=== PATIENT | male | born 1955 | race Caucasian/White ===

== ENCOUNTER 2020-02-21 12:38 | Inpatient (IN) ==
[2020-02-21] MEDS ORDERED: Isovue-370 500 ML BOTTLE IVP ONE (12:44)
[2020-02-21 13:11] LABS: Basophils # 0.1 K/mcL (0.0-0.2); Eosinophils # 0.2 K/mcL (0.0-0.6); Eosinophils % 2.2 %; Hematocrit 25.8 % (37.5-50.1); Hemoglobin 8.1 g/dL (12.9-16.9); Immature Granulocytes % 0.6 % (0-4); Lymphocytes # 0.5 K/mcL (0.6-4.6); Lymphocytes % 7.2 %; Mean Corpuscular HGB Conc 31.4 g/dL (31.6-35.5); Mean Corpuscular Hemoglobin 29.8 pg (28.0-33.3); Mean Corpuscular Volume 94.9 fL (83.0-100.0); Mean Platelet Volume 8.9 fL (9.4-12.4); Monocytes # 0.6 K/mcL (0.0-1.3); Monocytes % 7.8 %; Neutrophils # 5.8 K/mcL (1.6-8.9); Platelet Count 307 K/mcL (140-400); Red Blood Count 2.72 M/mcL (4.19-5.50); Red Cell Distribution Width 14.6 % (11.5-14.5); Segmented Neutrophils % 81.2 %; White Blood Count 7.2 K/mcL (4.3-11.1)
[2020-02-21 13:36] LABS: Calcium 8.5 mg/dL (8.6-10.3); Troponin I 0.04 ng/mL (< 0.04)
[2020-02-21 16:51] LABS: Albumin 2.6 g/dL (3.5-5.7)
[2020-02-21] MEDS ORDERED: Naloxone 0.4 MG/ML INJ IVP PRN (17:12)
[2020-02-21 18:35] LABS: Adenovirus Not Detected (Not Detect); Bordetella Pertussis Not Detected (Not Detect); Chlamydophila pneumoniae Not Detected (Not Detect); Coronavirus 229E Not Detected (Not Detect); Coronavirus HKU1 Not Detected (Not Detect); Coronavirus NL63 Not Detected (Not Detect); Coronavirus OC43 Not Detected (Not Detect); Human Metapneumovirus Not Detected (Not Detect); Human Rhinovirus/Enterovirus Not Detected (Not Detect); Influenza A Subtype 2009 H1 Not Detected (Not Detect); Influenza B Not Detected (Not Detect); Mycoplasma pneumoniae Not Detected (Not Detect); Parainfluenza Virus 1 Not Detected (Not Detect); Parainfluenza Virus 2 Not Detected (Not Detect); Parainfluenza Virus 3 Not Detected (Not Detect); Parainfluenza Virus 4 Not Detected (Not Detect); Respiratory Syncytial Virus Not Detected (Not Detect); SARS-CoV-2 Not Detected (Not Detect)
[2020-02-21 19:10] LABS: Total Protein,Pleural Fluid 2.6 g/dL
[2020-02-21 19:11] LABS: RBC,Pleural Fluid 430000 RBC/mcL
[2020-02-21 19:34] LABS: Appearance of Body Fluid Cloudy (Clear); Volume of Body Fluid 900 mL
[2020-02-21 19:35] LABS: Appearance of Pleural Fl Bloody (Clear)
[2020-02-21 21:02] LABS: Basophils,Pleural Fluid 0 %
[2020-02-22] MEDS ORDERED: *HR* HYDROcodone/Acet 5/325 mg TABLET PO PRN (08:26)
[2020-02-22 08:34] LABS: INR 1.1; Prothrombin Time 13.1 Seconds (9.4-12.1)
[2020-02-22 08:42] LABS: Albumin 2.4 g/dL (3.5-5.7); Albumin/Globulin Ratio 0.9 (1.1-2.2); Bilirubin,Direct 0.2 mg/dL (0.0-0.2); Bilirubin,Indirect 0.3 mg/dL (0.0-1.0); Bilirubin,Total 0.5 mg/dL (0.3-1.0); Globulin 2.6 g/dL (2.4-3.5)
[2020-02-22 08:43] LABS: Calcium 8.6 mg/dL (8.6-10.3); Magnesium 1.8 mg/dL (1.6-2.6); Phosphorous 4.3 mg/dL (2.7-4.5); Potassium 4.4 mEq/L (3.5-5.1)
[2020-02-22 12:20] LABS: Basophils # 0.1 K/mcL (0.0-0.2); Eosinophils # 0.2 K/mcL (0.0-0.6); Eosinophils % 2.1 %; Hematocrit 26.2 % (37.5-50.1); Hemoglobin 8.3 g/dL (12.9-16.9); Immature Granulocytes % 0.6 % (0-4); Lymphocytes # 0.6 K/mcL (0.6-4.6); Lymphocytes % 7.7 %; Mean Corpuscular HGB Conc 31.7 g/dL (31.6-35.5); Mean Corpuscular Hemoglobin 30.4 pg (28.0-33.3); Mean Platelet Volume 9.1 fL (9.4-12.4); Monocytes # 0.4 K/mcL (0.0-1.3); Monocytes % 5.6 %; Neutrophils # 5.9 K/mcL (1.6-8.9); Platelet Count 325 K/mcL (140-400); Red Blood Count 2.73 M/mcL (4.19-5.50); Red Cell Distribution Width 14.7 % (11.5-14.5); White Blood Count 7.2 K/mcL (4.3-11.1)
[2020-02-22] MEDS ORDERED: 0.9 % Sodium Chloride 250 ML IVC PRN (13:01)
[2020-02-22] MEDS ORDERED: 0.9 % Sodium Chloride 1,000 ML PRIME SCH (13:15)
[2020-02-22 14:46] LABS: Hepatitis B Surface Antibody < 3.10 mIU/mL
[2020-02-22 14:57] LABS: Hepatitis B Surface Antigen Nonreactive (Nonreactive)
[2020-02-23 01:06] LABS: Basophils # 0.1 K/mcL (0.0-0.2); Basophils % 0.8 %; Eosinophils # 0.2 K/mcL (0.0-0.6); Eosinophils % 2.7 %; Hematocrit 24.4 % (37.5-50.1); Hemoglobin 7.9 g/dL (12.9-16.9); Immature Granulocytes % 0.7 % (0-4); Lymphocytes # 0.6 K/mcL (0.6-4.6); Lymphocytes % 8.1 %; Mean Corpuscular HGB Conc 32.4 g/dL (31.6-35.5); Mean Corpuscular Hemoglobin 30.5 pg (28.0-33.3); Mean Corpuscular Volume 94.2 fL (83.0-100.0); Mean Platelet Volume 9.1 fL (9.4-12.4); Monocytes # 0.5 K/mcL (0.0-1.3); Monocytes % 6.6 %; Neutrophils # 5.8 K/mcL (1.6-8.9); Platelet Count 318 K/mcL (140-400); Red Blood Count 2.59 M/mcL (4.19-5.50); Red Cell Distribution Width 14.7 % (11.5-14.5); Segmented Neutrophils % 81.1 %; White Blood Count 7.2 K/mcL (4.3-11.1)
[2020-02-23 01:22] LABS: Phosphorous 2.8 mg/dL (2.7-4.5)
[2020-02-23 01:23] LABS: Calcium 8.1 mg/dL (8.6-10.3); Potassium 4.3 mEq/L (3.5-5.1)
[2020-02-23] MEDS: carvediloL 6.25 MG TABLET PO SCH ×2 (10:49→16:33)
[2020-02-23] MEDS ORDERED: Vancomycin 1 EACH in 0.9 % Sodium Chloride 250 ML IVPB PRN (10:58)
[2020-02-23] MEDS ORDERED: Vancomycin 1,250 MG/262.5 ML IV.SOLN IVPB ONE (11:35)
[2020-02-23] MEDS ORDERED: Piperacillin/Tazobactam 3.375 GM in 0.9 % Sodium Chloride Mini Bag 100 ML IVPB SCH (12:00)
[2020-02-23 14:48] LABS: RBC,Peritoneal Fluid 56000 RBC/mcL
[2020-02-23 15:02] LABS: Total Protein,Peritoneal Fluid 2.9 g/dL
[2020-02-23 15:19] LABS: Appearance of Peritoneal Fl BLOODY (Clear); Basophils,Peritoneal Fluid 0 %
[2020-02-23] MEDS ORDERED: Albumin 25% 12.5gm/50mL 12.5 GM/50 ML IV.SOLN IVPB ONE (15:30)
[2020-02-23 20:02] VITALS: BP 157/81
[2020-02-23] MEDS ORDERED: Isovue-370 500 ML BOTTLE IVP ONE (20:17)
[2020-02-23 20:20] LABS: Basophils # 0.1 K/mcL (0.0-0.2); Eosinophils # 0.1 K/mcL (0.0-0.6); Eosinophils % 1.6 %; Hematocrit 24.5 % (37.5-50.1); Hemoglobin 7.6 g/dL (12.9-16.9); Immature Granulocytes % 0.7 % (0-4); Lymphocytes # 0.6 K/mcL (0.6-4.6); Lymphocytes % 8.4 %; Mean Corpuscular Hemoglobin 29.5 pg (28.0-33.3); Mean Platelet Volume 8.9 fL (9.4-12.4); Monocytes # 0.6 K/mcL (0.0-1.3); Monocytes % 7.8 %; Neutrophils # 5.9 K/mcL (1.6-8.9); Platelet Count 307 K/mcL (140-400); Red Blood Count 2.58 M/mcL (4.19-5.50); Segmented Neutrophils % 80.5 %; White Blood Count 7.4 K/mcL (4.3-11.1)
[2020-02-24 11:36] LABS: Fluid Source for Albumin PERITONEAL FL
== END 2020-02-23 20:50 | disposition short-term general hospital (02) | DRG 143 ==
LOC: 2ANU 12:38 → EMEROOARM 12:38 → SUATTDRO 16:43 → 2ANU 20:13
PROVIDERS: ADMIT Internal Medicine; ATTEND Student in an Organized Health Care Education/Training Program

== ENCOUNTER 2020-09-05 11:57 | Inpatient (IN) ==
[2020-09-05] MEDS ORDERED: Albumin 25% 25gram/100mL 25 GM/100 ML IV.SOLN IVPB ONE (12:16)
[2020-09-05] MEDS ORDERED: 0.9 % Sodium Chloride 1,000 ML IVC ONE (12:56)
[2020-09-05 13:01] LABS: Eosinophils % 0.6 %; Hematocrit 27.8 % (37.5-50.1); Hemoglobin 8.7 g/dL (12.9-16.9); Lymphocytes # 0.1 K/mcL (0.6-4.6); Lymphocytes % 3.5 %; Mean Corpuscular HGB Conc 31.3 g/dL (31.6-35.5); Mean Corpuscular Hemoglobin 29.3 pg (28.0-33.3); Mean Corpuscular Volume 93.6 fL (83.0-100.0); Mean Platelet Volume 9.8 fL (9.4-12.4); Monocytes # 0.1 K/mcL (0.0-1.3); Monocytes % 2.9 %; Neutrophils # 2.9 K/mcL (1.6-8.9); Platelet Count 308 K/mcL (140-400); Red Blood Count 2.97 M/mcL (4.19-5.50); Red Cell Distribution Width 15.8 % (11.5-14.5); White Blood Count 3.1 K/mcL (4.3-11.1)
[2020-09-05 13:09] LABS: Albumin 2.3 g/dL (3.5-5.7); Albumin/Globulin Ratio 0.8 (1.1-2.2); Bilirubin,Direct 0.7 mg/dL (0.0-0.2); Bilirubin,Indirect 0.3 mg/dL (0.0-1.0); Calcium 9.4 mg/dL (8.6-10.3); Globulin 2.9 g/dL (2.4-3.5); Potassium 5.2 mEq/L (3.5-5.1); Total Protein 5.2 g/dL (6.4-8.9); Troponin I 0.05 ng/mL (< 0.04)
[2020-09-05 13:41] LABS: Platelet Estimate Normal (Normal)
[2020-09-05 13:42] LABS: Anisocytosis 1+ (Not Present); Large Platelets Present (Not Present)
[2020-09-05 13:46] LABS: INR 1.1; Prothrombin Time 13.1 Seconds (9.4-12.1)
[2020-09-05 13:49] LABS: Activated Partial Thrombo Time 28.9 Seconds (26.0-36.0)
[2020-09-05] MEDS ORDERED: 0.9 % Sodium Chloride 500 ML IV ONE (14:18)
[2020-09-05] MEDS ORDERED: 0.9 % Sodium Chloride 250 ML IVC ONE (14:22)
[2020-09-05] MEDS ORDERED: Ondansetron 4 MG/2 ML VIAL IVP PRN (15:07)
[2020-09-05] MEDS ORDERED: Naloxone 0.4 MG/ML INJ IVP PRN (15:07)
[2020-09-05] MEDS ORDERED: Ipratropium/Albuterol Neb 3 ML IH PRN (15:12)
[2020-09-05] MEDS ORDERED: Morphine Sulfate 2 MG/ML SYRINGE IVP STA (15:41)
[2020-09-05] MEDS ORDERED: Vancomycin 1,500 MG/265 ML IV.SOLN IVPB ONE (16:00)
[2020-09-05] MEDS ORDERED: Piperacillin/Tazobactam 3.375 GM in 0.9 % Sodium Chloride Mini Bag 100 ML IVPB SCH (16:00)
[2020-09-05] MEDS ORDERED: Nitroglycerin 0.4 MG TAB.SUBL SL PRN (16:15)
[2020-09-05] MEDS ORDERED: Perflutren Lipid Microsphere 1.3 ML in 0.9 % Sodium Chloride 8.7 ML IVP PRN (16:25)
[2020-09-05] MEDS ORDERED: Vancomycin 1,250 MG/262.5 ML IV.SOLN IVPB ONE (16:45)
[2020-09-05] MEDS: *HR* Heparin 5,000 UNIT/ML VIAL SQ SCH (16:58)
[2020-09-05] MEDS: Piperacillin/Tazobactam 3.375 GM in 0.9 % Sodium Chloride Mini Bag 100 ML IVPB SCH (16:58)
[2020-09-05] MEDS: *HR* HYDROcodone/Acet 5/325 mg TABLET PO PRN (17:05)
[2020-09-05 19:14] LABS: ABG Base Excess -1 mEq/L (-2 to 3); ABG HCO3 24 mEq/L (21-27); ABG Oxygen Saturation 92 % (95-98); ABG PCO2 38 mmHg (35-45); ABG PH 7.41 pH Units (7.32-7.45); ABG PO2 63 mmHg (85-104); ABG TCO2 25 mEq/L (20-26)
[2020-09-05] MEDS: traZODone 50 MG TABLET PO SCH (20:42)
[2020-09-05] MEDS: Melatonin 3 MG TABLET PO SCH (20:42)
[2020-09-05 20:57] LABS: Adenovirus Not Detected (Not Detect); Bordetella Pertussis Not Detected (Not Detect); Chlamydophila pneumoniae Not Detected (Not Detect); Coronavirus 229E Not Detected (Not Detect); Coronavirus HKU1 Not Detected (Not Detect); Coronavirus NL63 Not Detected (Not Detect); Coronavirus OC43 Not Detected (Not Detect); Human Metapneumovirus Not Detected (Not Detect); Human Rhinovirus/Enterovirus Not Detected (Not Detect); Influenza A Subtype 2009 H1 Not Detected (Not Detect); Influenza B Not Detected (Not Detect); Mycoplasma pneumoniae Not Detected (Not Detect); Parainfluenza Virus 1 Not Detected (Not Detect); Parainfluenza Virus 2 Not Detected (Not Detect); Parainfluenza Virus 3 Not Detected (Not Detect); Parainfluenza Virus 4 Not Detected (Not Detect); Respiratory Syncytial Virus Not Detected (Not Detect); SARS-CoV-2 Not Detected (Not Detect)
[2020-09-06 01:23] LABS: Basophils % 0.3 %; Hematocrit 26.9 % (37.5-50.1); Hemoglobin 8.6 g/dL (12.9-16.9); Immature Granulocytes % 4.5 % (0-4); Lymphocytes # 0.2 K/mcL (0.6-4.6); Lymphocytes % 4.7 %; Mean Corpuscular Hemoglobin 29.2 pg (28.0-33.3); Mean Corpuscular Volume 91.2 fL (83.0-100.0); Mean Platelet Volume 10.3 fL (9.4-12.4); Monocytes # 0.2 K/mcL (0.0-1.3); Monocytes % 4.5 %; Platelet Count 280 K/mcL (140-400); Red Blood Count 2.95 M/mcL (4.19-5.50); Red Cell Distribution Width 15.9 % (11.5-14.5); White Blood Count 3.8 K/mcL (4.3-11.1)
[2020-09-06 01:29] LABS: Neutrophils # 3.2 K/mcL (1.6-8.9)
[2020-09-06 01:50] LABS: Albumin 2.3 g/dL (3.5-5.7); Albumin/Globulin Ratio 0.9 (1.1-2.2); Bilirubin,Total 1.1 mg/dL (0.3-1.0); Calcium 9.3 mg/dL (8.6-10.3); Chol/HDL Ratio 16.8 (0-4.9); Globulin 2.7 g/dL (2.4-3.5); Potassium 5.7 mEq/L (3.5-5.1)
[2020-09-06] MEDS: Piperacillin/Tazobactam 3.375 GM in 0.9 % Sodium Chloride Mini Bag 100 ML IVPB SCH ×2 (04:39→16:11)
[2020-09-06] MEDS: *HR* Heparin 5,000 UNIT/ML VIAL SQ SCH ×2 (04:40→17:08)
[2020-09-06] MEDS: *HR* HYDROcodone/Acet 5/325 mg TABLET PO PRN ×3 (04:44→21:06)
[2020-09-06] MEDS: Renal Vitamin 1 CAP CAPSULE PO SCH (07:11)
[2020-09-06] MEDS ORDERED: 0.9 % Sodium Chloride 250 ML IVC PRN (07:11)
[2020-09-06] MEDS: Aspirin 81 MG TAB.CHEW PO SCH (07:11)
[2020-09-06] MEDS ORDERED: 0.9 % Sodium Chloride 1,000 ML PRIME SCH (07:15)
[2020-09-06 07:54] LABS: Acinetobacter baumannii by PCR Not Detected (Not Detect); Candida albicans by PCR Not Detected (Not Detect); Candida glabrata by PCR Not Detected (Not Detect); Candida krusei by PCR Not Detected (Not Detect); Candida parapsilosis by PCR Not Detected (Not Detect); Candida tropicalis by PCR Not Detected (Not Detect); Enterobacter cloacae Cmplx PCR Not Detected (Not Detect); Enterobacteriaceae by PCR Not Detected (Not Detect); Enterococcus by PCR Not Detected (Not Detect); Escherichia coli by PCR Not Detected (Not Detect); Klebsiella oxytoca by PCR Not Detected (Not Detect); Klebsiella pneumoniae by PCR Not Detected (Not Detect); Proteus by PCR Not Detected (Not Detect); Pseudomonas aeruginosa by PCR Not Detected (Not Detect); Serratia marcescens by PCR Not Detected (Not Detect); Staphylococcus aureus by PCR Not Detected (Not Detect); Staphylococcus by PCR Not Detected (Not Detect); Streptococcus agalactiae(B)PCR Not Detected (Not Detect); Streptococcus by PCR Not Detected (Not Detect); Streptococcus pneumoniae PCR Not Detected (Not Detect); Streptococcus pyogenes (A) PCR Not Detected (Not Detect)
[2020-09-06 09:09] LABS: Hepatitis B Surface Antibody < 3.10 mIU/mL
[2020-09-06 09:20] LABS: Hepatitis B Surface Antigen Nonreactive (Nonreactive)
[2020-09-06] MEDS ORDERED: Albumin 25% 25gram/100mL 25 GM/100 ML IV.SOLN ONE (09:39)
[2020-09-06] MEDS ORDERED: Albumin 25% 25gram/100mL 25 GM/100 ML IV.SOLN IVPB PRN (09:41)
[2020-09-06 13:37] LABS: Appearance of Peritoneal Fl CLOUDY (Clear)
[2020-09-06 13:41] LABS: Basophils,Peritoneal Fluid 0 %; Eosinophils,Peritoneal Fluid 0 %
[2020-09-06] MEDS ORDERED: Vancomycin 500 MG in 0.9 % Sodium Chloride Mini Bag 100 ML IVPB ONE (16:00)
[2020-09-06] MEDS: Melatonin 3 MG TABLET PO SCH (21:19)
[2020-09-06] MEDS: traZODone 50 MG TABLET PO SCH (21:19)
[2020-09-07 00:46] LABS: Hematocrit 25.4 % (37.5-50.1); Hemoglobin 7.9 g/dL (12.9-16.9); Lymphocytes # 0.3 K/mcL (0.6-4.6); Mean Corpuscular HGB Conc 31.1 g/dL (31.6-35.5); Mean Corpuscular Hemoglobin 28.7 pg (28.0-33.3); Mean Corpuscular Volume 92.4 fL (83.0-100.0); Mean Platelet Volume 9.7 fL (9.4-12.4); Nucleated Red Blood Cells 0.3 /100 WBC (0); Platelet Count 206 K/mcL (140-400); Red Blood Count 2.75 M/mcL (4.19-5.50); Red Cell Distribution Width 15.9 % (11.5-14.5)
[2020-09-07 00:48] LABS: White Blood Count 6.8 K/mcL (4.3-11.1)
[2020-09-07 01:04] LABS: Calcium 8.9 mg/dL (8.6-10.3); Potassium 4.7 mEq/L (3.5-5.1)
[2020-09-07 01:18] LABS: Large Platelets Present (Not Present); Neutrophils # 6.4 K/mcL (1.6-8.9)
[2020-09-07 01:19] LABS: Anisocytosis 1+ (Not Present); Platelet Estimate Normal (Normal); Poikilocytosis 1+ (Not Present); Polychromasia 1+ (Not Present)
[2020-09-07 01:20] LABS: Reactive Lymphocytes Present (Not Present); Smudge Cells Present (Not Present)
[2020-09-07] MEDS: Piperacillin/Tazobactam 3.375 GM in 0.9 % Sodium Chloride Mini Bag 100 ML IVPB SCH ×2 (05:01→16:38)
[2020-09-07] MEDS: *HR* Heparin 5,000 UNIT/ML VIAL SQ SCH (06:14)
[2020-09-07] MEDS: Aspirin 81 MG TAB.CHEW PO SCH (07:17)
[2020-09-07] MEDS: Renal Vitamin 1 CAP CAPSULE PO SCH (07:17)
[2020-09-07] MEDS: traZODone 50 MG TABLET PO SCH (20:49)
[2020-09-07] MEDS: Melatonin 3 MG TABLET PO SCH (20:49)
[2020-09-08 02:49] LABS: Hematocrit 23.7 % (37.5-50.1); Hemoglobin 7.3 g/dL (12.9-16.9); Mean Corpuscular HGB Conc 30.8 g/dL (31.6-35.5); Mean Corpuscular Hemoglobin 28.5 pg (28.0-33.3); Mean Corpuscular Volume 92.6 fL (83.0-100.0); Mean Platelet Volume 10.3 fL (9.4-12.4); Platelet Count 214 K/mcL (140-400); Red Blood Count 2.56 M/mcL (4.19-5.50); Red Cell Distribution Width 16.4 % (11.5-14.5)
[2020-09-08 03:04] LABS: White Blood Count 19.8 K/mcL (4.3-11.1)
[2020-09-08 03:10] LABS: Calcium 9.2 mg/dL (8.6-10.3); Potassium 4.9 mEq/L (3.5-5.1)
[2020-09-08] MEDS: *HR* HYDROcodone/Acet 5/325 mg TABLET PO PRN ×2 (03:22→13:27)
[2020-09-08 04:10] LABS: Platelet Estimate Normal (Normal); Toxic Granulation Present (Not Present)
[2020-09-08 04:13] LABS: Lymphocytes # 2.8 K/mcL (0.6-4.6); Monocytes # 0.4 K/mcL (0.0-1.3); Neutrophils # 15.8 K/mcL (1.6-8.9)
[2020-09-08] MEDS: Piperacillin/Tazobactam 3.375 GM in 0.9 % Sodium Chloride Mini Bag 100 ML IVPB SCH ×2 (04:30→15:54)
[2020-09-08] MEDS ORDERED: 0.9 % Sodium Chloride 2,000 ML ONE (06:58)
[2020-09-08] MEDS ORDERED: 0.9 % Sodium Chloride 250 ML IVC PRN (07:19)
[2020-09-08] MEDS ORDERED: Albumin 25% 25gram/100mL 25 GM/100 ML IV.SOLN IVPB PRN (07:19)
[2020-09-08] MEDS ORDERED: 0.9 % Sodium Chloride 250 ML IVC SCH (09:30)
[2020-09-08] MEDS: Aspirin 81 MG TAB.CHEW PO SCH (13:44)
[2020-09-08] MEDS: Renal Vitamin 1 CAP CAPSULE PO SCH (13:45)
[2020-09-08] MEDS ORDERED: Vancomycin 500 MG in 0.9 % Sodium Chloride Mini Bag 100 ML IVPB ONE (16:00)
[2020-09-08] MEDS: traZODone 50 MG TABLET PO SCH (20:00)
[2020-09-08] MEDS: Melatonin 3 MG TABLET PO SCH (20:00)
[2020-09-09 02:30] LABS: Hematocrit 24.8 % (37.5-50.1); Hemoglobin 7.8 g/dL (12.9-16.9); Mean Corpuscular HGB Conc 31.5 g/dL (31.6-35.5); Mean Corpuscular Hemoglobin 29.1 pg (28.0-33.3); Mean Corpuscular Volume 92.5 fL (83.0-100.0); Mean Platelet Volume 11.1 fL (9.4-12.4); Platelet Count 222 K/mcL (140-400); Red Blood Count 2.68 M/mcL (4.19-5.50); Red Cell Distribution Width 17.2 % (11.5-14.5); White Blood Count 21.9 K/mcL (4.3-11.1)
[2020-09-09 02:41] LABS: Calcium 9.2 mg/dL (8.6-10.3); Potassium 4.3 mEq/L (3.5-5.1)
[2020-09-09] MEDS: Piperacillin/Tazobactam 3.375 GM in 0.9 % Sodium Chloride Mini Bag 100 ML IVPB SCH ×2 (03:34→16:52)
[2020-09-09] MEDS: *HR* HYDROcodone/Acet 5/325 mg TABLET PO PRN ×2 (03:41→14:12)
[2020-09-09 04:05] LABS: Anisocytosis 1+ (Not Present); Lymphocytes # 1.1 K/mcL (0.6-4.6); Platelet Estimate Normal (Normal)
[2020-09-09 04:06] LABS: Hypochromasia Present (Not Present); Toxic Granulation Present (Not Present)
[2020-09-09 04:07] LABS: Neutrophils # 20.6 K/mcL (1.6-8.9)
[2020-09-09] MEDS: Renal Vitamin 1 CAP CAPSULE PO SCH (08:22)
[2020-09-09] MEDS: Aspirin 81 MG TAB.CHEW PO SCH (08:22)
[2020-09-09 11:31] LABS: Albumin 2.3 g/dL (3.5-5.7); Bilirubin,Direct 0.4 mg/dL (0.0-0.2); Bilirubin,Indirect 0.3 mg/dL (0.0-1.0); Bilirubin,Total 0.7 mg/dL (0.3-1.0); Globulin 2.3 g/dL (2.4-3.5); Total Protein 4.6 g/dL (6.4-8.9)
[2020-09-09 12:18] LABS: Fluid Source for Albumin ASCITES FLUID
[2020-09-09] MEDS: Melatonin 3 MG TABLET PO SCH (20:31)
[2020-09-09] MEDS: traZODone 50 MG TABLET PO SCH (20:31)
[2020-09-10] MEDS: Piperacillin/Tazobactam 3.375 GM in 0.9 % Sodium Chloride Mini Bag 100 ML IVPB SCH ×2 (04:42→16:38)
[2020-09-10] MEDS ORDERED: 0.9 % Sodium Chloride 250 ML IVC PRN (07:05)
[2020-09-10] MEDS: Aspirin 81 MG TAB.CHEW PO SCH (10:11)
[2020-09-10] MEDS: Renal Vitamin 1 CAP CAPSULE PO SCH (10:11)
[2020-09-10] MEDS: Ipratropium/Albuterol Neb 3 ML IH SCH ×3 (10:29→22:54)
[2020-09-10 11:56] LABS: Hemoglobin 7.9 g/dL (12.9-16.9); Mean Corpuscular HGB Conc 31.6 g/dL (31.6-35.5); Mean Corpuscular Hemoglobin 28.7 pg (28.0-33.3); Mean Corpuscular Volume 90.9 fL (83.0-100.0); Mean Platelet Volume 11.1 fL (9.4-12.4); Monocytes # 0.5 K/mcL (0.0-1.3); Platelet Count 254 K/mcL (140-400); Red Blood Count 2.75 M/mcL (4.19-5.50); Red Cell Distribution Width 16.6 % (11.5-14.5); White Blood Count 22.7 K/mcL (4.3-11.1)
[2020-09-10 12:11] LABS: INR 1.1; Prothrombin Time 12.9 Seconds (9.4-12.1)
[2020-09-10 12:25] LABS: Albumin 2.2 g/dL (3.5-5.7); Albumin/Globulin Ratio 0.8 (1.1-2.2); Calcium 8.6 mg/dL (8.6-10.3); Globulin 2.8 g/dL (2.4-3.5); Magnesium 1.7 mg/dL (1.6-2.6); Phosphorous 2.7 mg/dL (2.7-4.5); Potassium 3.8 mEq/L (3.5-5.1)
[2020-09-10 13:16] LABS: Lymphocytes # 0.7 K/mcL (0.6-4.6); Neutrophils # 20.2 K/mcL (1.6-8.9); Platelet Estimate Normal (Normal)
[2020-09-10] MEDS: *HR* HYDROcodone/Acet 5/325 mg TABLET PO PRN ×2 (13:53→21:59)
[2020-09-10 14:50] LABS: Appearance of Pleural Fl Cloudy (Clear)
[2020-09-10 15:20] LABS: Basophils,Pleural Fluid 0 %; Eosinophils,Pleural Fluid 0 %
[2020-09-10] MEDS ORDERED: Saline Nasal Spray 44 ML BOTTLE NS PRN (20:16)
[2020-09-10] MEDS: traZODone 50 MG TABLET PO SCH (21:01)
[2020-09-10] MEDS: Melatonin 3 MG TABLET PO SCH (21:01)
[2020-09-11] MEDS: Ipratropium/Albuterol Neb 3 ML IH SCH ×4 (04:03→22:13)
[2020-09-11] MEDS: Piperacillin/Tazobactam 3.375 GM in 0.9 % Sodium Chloride Mini Bag 100 ML IVPB SCH ×2 (04:34→16:27)
[2020-09-11 05:33] LABS: Mean Corpuscular HGB Conc 31.3 g/dL (31.6-35.5); Mean Corpuscular Hemoglobin 29.3 pg (28.0-33.3)
[2020-09-11 05:35] LABS: Hematocrit 25.2 % (37.5-50.1); Hemoglobin 7.9 g/dL (12.9-16.9); Mean Corpuscular Volume 93.3 fL (83.0-100.0); Mean Platelet Volume 10.9 fL (9.4-12.4); Platelet Count 265 K/mcL (140-400); Red Cell Distribution Width 16.5 % (11.5-14.5); White Blood Count 25.5 K/mcL (4.3-11.1)
[2020-09-11 05:43] LABS: INR 1.2; Prothrombin Time 13.6 Seconds (9.4-12.1)
[2020-09-11 05:49] LABS: Albumin 2.3 g/dL (3.5-5.7); Albumin/Globulin Ratio 0.9 (1.1-2.2); Calcium 9.2 mg/dL (8.6-10.3); Globulin 2.7 g/dL (2.4-3.5); Magnesium 1.8 mg/dL (1.6-2.6); Phosphorous 5.2 mg/dL (2.7-4.5); Potassium 4.6 mEq/L (3.5-5.1)
[2020-09-11 06:10] LABS: Eosinophils # 1.5 K/mcL (0.0-0.6); Lymphocytes # 10.7 K/mcL (0.6-4.6); Neutrophils # 12.2 K/mcL (1.6-8.9)
[2020-09-11 06:11] LABS: Reactive Lymphocytes Present (Not Present)
[2020-09-11 06:17] LABS: Ferritin > 1500 ng/mL (20-250); Folate > 22.3 ng/mL (3.0-16.0); Iron 20 mcg/dL (65-175); Platelet Estimate Normal (Normal); Transferrin < 75 mg/dL (203-362); Vitamin B12 > 1500 pg/mL (250-1100)
[2020-09-11] MEDS: Renal Vitamin 1 CAP CAPSULE PO SCH (07:48)
[2020-09-11] MEDS: Aspirin 81 MG TAB.CHEW PO SCH (07:48)
[2020-09-11] MEDS ORDERED: Iron Sucrose Complex 400 MG in 0.9 % Sodium Chloride 250 ML IVPB ONE (10:00)
[2020-09-11] MEDS: Acetaminophen 325 MG TABLET PO PRN (10:19)
[2020-09-11 10:35] LABS: ABG Base Excess 6 mEq/L (-2 to 3); ABG HCO3 31 mEq/L (21-27); ABG Oxygen Saturation 97 % (95-98); ABG PCO2 47 mmHg (35-45); ABG PH 7.43 pH Units (7.32-7.45); ABG PO2 85 mmHg (85-104); ABG TCO2 33 mEq/L (20-26)
[2020-09-11] MEDS ORDERED: Isovue-370 500 ML BOTTLE IVP ONE (10:53)
[2020-09-11 13:20] LABS: Albumin 2.3 g/dL (3.5-5.7); Lactate Dehydrogenase 182 Units/L (140-271)
[2020-09-11] MEDS: Lactulose Oral Soln 20 GM/30 ML UDC PO SCH ×2 (15:08→20:36)
[2020-09-11 17:22] LABS: Appearance of Peritoneal Fl HAZY (Clear)
[2020-09-11 17:31] LABS: RBC,Peritoneal Fluid 21000 RBC/mcL
[2020-09-11 17:46] LABS: LDH,Peritoneal Fluid > 1200 Units/L (No Ref Range)
[2020-09-11 18:02] LABS: Glucose,Peritoneal Fluid < 10 mg/dL (No Ref Range)
[2020-09-11] MEDS: traZODone 50 MG TABLET PO SCH (20:36)
[2020-09-11] MEDS: Melatonin 3 MG TABLET PO SCH (20:36)
[2020-09-11 21:06] LABS: Basophils,Peritoneal Fluid 0 %; Eosinophils,Peritoneal Fluid 0 %
[2020-09-12] MEDS: Ipratropium/Albuterol Neb 3 ML IH SCH ×4 (03:33→22:09)
[2020-09-12 05:12] LABS: White Blood Count 23.9 K/mcL (4.3-11.1)
[2020-09-12 05:13] LABS: Basophils # 0.1 K/mcL (0.0-0.2); Basophils % 0.4 %; Eosinophils # 0.2 K/mcL (0.0-0.6); Eosinophils % 0.9 %; Hematocrit 22.8 % (37.5-50.1); Hemoglobin 7.2 g/dL (12.9-16.9); Immature Granulocytes % 12.8 % (0-4); Lymphocytes # 0.8 K/mcL (0.6-4.6); Lymphocytes % 3.5 %; Mean Corpuscular HGB Conc 31.6 g/dL (31.6-35.5); Mean Corpuscular Hemoglobin 29.6 pg (28.0-33.3); Mean Corpuscular Volume 93.8 fL (83.0-100.0); Mean Platelet Volume 10.5 fL (9.4-12.4); Monocytes % 2.3 %; Platelet Count 324 K/mcL (140-400); Red Blood Count 2.43 M/mcL (4.19-5.50); Red Cell Distribution Width 16.2 % (11.5-14.5); Segmented Neutrophils % 80.1 %
[2020-09-12 05:22] LABS: INR 1.1; Prothrombin Time 12.7 Seconds (9.4-12.1)
[2020-09-12 05:26] LABS: Monocytes # 0.6 K/mcL (0.0-1.3); Neutrophils # 19.1 K/mcL (1.6-8.9)
[2020-09-12 05:28] LABS: Albumin 2.2 g/dL (3.5-5.7); Albumin/Globulin Ratio 0.7 (1.1-2.2); Bilirubin,Total 0.8 mg/dL (0.3-1.0); Calcium 9.5 mg/dL (8.6-10.3); Phosphorous 7.3 mg/dL (2.7-4.5); Total Protein 5.2 g/dL (6.4-8.9)
[2020-09-12] MEDS: Piperacillin/Tazobactam 3.375 GM in 0.9 % Sodium Chloride Mini Bag 100 ML IVPB SCH ×2 (05:48→17:32)
[2020-09-12 05:55] LABS: Hypochromasia Present (Not Present); Platelet Estimate Normal (Normal); Reactive Lymphocytes Present (Not Present); Toxic Granulation Present (Not Present)
[2020-09-12] MEDS ORDERED: 0.9 % Sodium Chloride 250 ML IVC PRN (06:27)
[2020-09-12] MEDS ORDERED: 0.9 % Sodium Chloride 2,000 ML ONE (06:29)
[2020-09-12] MEDS ORDERED: 0.9 % Sodium Chloride 1,000 ML PRIME SCH (06:30)
[2020-09-12] MEDS: Lactulose Oral Soln 20 GM/30 ML UDC PO SCH ×3 (08:07→21:29)
[2020-09-12] MEDS: Aspirin 81 MG TAB.CHEW PO SCH (08:07)
[2020-09-12] MEDS: Renal Vitamin 1 CAP CAPSULE PO SCH (08:17)
[2020-09-12] MEDS: Acetaminophen 325 MG TABLET PO PRN (13:00)
[2020-09-12] MEDS: Melatonin 3 MG TABLET PO SCH (21:28)
[2020-09-12] MEDS: traZODone 50 MG TABLET PO SCH (21:29)
[2020-09-13 03:49] LABS: Hematocrit 22.5 % (37.5-50.1); Hemoglobin 6.8 g/dL (12.9-16.9); Mean Corpuscular HGB Conc 30.2 g/dL (31.6-35.5); Mean Corpuscular Hemoglobin 28.8 pg (28.0-33.3); Mean Corpuscular Volume 95.3 fL (83.0-100.0); Mean Platelet Volume 10.5 fL (9.4-12.4); Platelet Count 361 K/mcL (140-400); Red Blood Count 2.36 M/mcL (4.19-5.50); Red Cell Distribution Width 16.4 % (11.5-14.5)
[2020-09-13 04:00] LABS: INR 1.1; Prothrombin Time 12.9 Seconds (9.4-12.1)
[2020-09-13] MEDS: Ipratropium/Albuterol Neb 3 ML IH SCH ×3 (04:00→15:47)
[2020-09-13 04:03] LABS: Hypochromasia Present (Not Present)
[2020-09-13 04:05] LABS: Lymphocytes # 1.3 K/mcL (0.6-4.6); Neutrophils # 18.5 K/mcL (1.6-8.9); Platelet Estimate Normal (Normal); Toxic Granulation Present (Not Present)
[2020-09-13 04:06] LABS: Anisocytosis 2+ (Not Present)
[2020-09-13 04:08] LABS: Albumin 2.2 g/dL (3.5-5.7); Albumin/Globulin Ratio 0.7 (1.1-2.2); Bilirubin,Total 0.8 mg/dL (0.3-1.0); Calcium 9.4 mg/dL (8.6-10.3); Globulin 3.2 g/dL (2.4-3.5); Magnesium 1.8 mg/dL (1.6-2.6); Phosphorous 5.4 mg/dL (2.7-4.5); Potassium 4.3 mEq/L (3.5-5.1); Total Protein 5.4 g/dL (6.4-8.9)
[2020-09-13] MEDS ORDERED: 0.9 % Sodium Chloride 250 ML IVC ONE (04:57)
[2020-09-13] MEDS: *HR* HYDROcodone/Acet 5/325 mg TABLET PO PRN ×2 (05:53→14:42)
[2020-09-13] MEDS: Piperacillin/Tazobactam 3.375 GM in 0.9 % Sodium Chloride Mini Bag 100 ML IVPB SCH ×2 (05:54→16:49)
[2020-09-13] MEDS: Lactulose Oral Soln 20 GM/30 ML UDC PO SCH ×4 (09:08→19:41)
[2020-09-13] MEDS: Aspirin 81 MG TAB.CHEW PO SCH (09:08)
[2020-09-13] MEDS: Renal Vitamin 1 CAP CAPSULE PO SCH (09:08)
[2020-09-13] MEDS: Acetaminophen 325 MG TABLET PO PRN ×2 (12:51→19:40)
[2020-09-13 17:06] LABS: Fluid Source for Albumin ASCITES FLUID
[2020-09-13 18:40] VITALS: BP 121/74
[2020-09-13] MEDS: traZODone 50 MG TABLET PO SCH (19:41)
[2020-09-13] MEDS: Melatonin 3 MG TABLET PO SCH (19:41)
== END 2020-09-13 20:00 | disposition short-term general hospital (02) | DRG 720 ==
LOC: EMEROOARM 11:57 → 2NNU 11:57 → SUATTDRO 09-06 17:12 → 2NENU 09-11 14:24
PROVIDERS: ADMIT Student in an Organized Health Care Education/Training Program; ATTEND Internal Medicine

== ENCOUNTER 2020-11-22 11:26 | Inpatient (IN) ==
[2020-11-22] MEDS ORDERED: 0.9 % Sodium Chloride 2,000 ML ONE (11:32)
[2020-11-22] MEDS ORDERED: 0.9 % Sodium Chloride 1,000 ML IVC ONE ×2 (11:33→13:20)
[2020-11-22] MEDS ORDERED: Isovue-370 500 ML BOTTLE IVP ONE (11:34)
[2020-11-22] MEDS ORDERED: Norepinephrine 4 MG/254 ML in 0.9% Sodium Chloride IVC ONE (11:50)
[2020-11-22 12:01] LABS: Prothrombin Time 11.9 Seconds (9.4-12.1)
[2020-11-22 12:04] LABS: Activated Partial Thrombo Time 29.8 Seconds (26.0-36.0)
[2020-11-22 12:17] LABS: Alanine Aminotransferase 11 Units/L (7-52); Albumin 2.7 g/dL (3.5-5.7); Albumin/Globulin Ratio 0.7 (1.1-2.2); Alkaline Phosphatase 66 Units/L (34-104); Aspartate Amino Transferase 12 Units/L (13-39); BUN/Creatinine Ratio 7 (6-26); Bilirubin,Direct 0.1 mg/dL (0.0-0.2); Bilirubin,Indirect 0.1 mg/dL (0.0-1.0); Bilirubin,Total 0.2 mg/dL (0.3-1.0); Blood Urea Nitrogen 29 mg/dL (8-23); Calcium 10.8 mg/dL (8.6-10.3); Carbon Dioxide 30 mEq/L (23-29); Chloride 102 mEq/L (98-107); Ethanol < 10 mg/dL (Less than 10); Globulin 3.8 g/dL (2.4-3.5); Glucose 99 mg/dL (70-105); Osmolality,Calculated 288 (280-300); Potassium 4.8 mEq/L (3.5-5.1); Sodium 136 mEq/L (136-145); Total Protein 6.5 g/dL (6.4-8.9); eGFR For African Americans 17 (> 60); eGFR For Non-African Americans 14 (> 60)
[2020-11-22] MEDS ORDERED: *HR* Midazolam HCl 2 MG/2 ML VIAL IVP ONE ×2 (12:29→12:54)
[2020-11-22] MEDS: *HR* Midazolam HCl 5 MG/5 ML VIAL IVP ONE ×2 (12:35→14:46)
[2020-11-22 12:40] LABS: Thyroid Stimulating Hormone 39.711 mcIU/mL (0.340-5.600); Troponin I 0.08 ng/mL (< 0.04)
[2020-11-22 12:46] LABS: Basophils % 0.2 %; Eosinophils % 0.7 %; Hematocrit 29.4 % (37.5-50.1); Hemoglobin 8.6 g/dL (12.9-16.9); Immature Granulocytes % 0.6 % (0-4); Lymphocytes # 0.6 K/mcL (0.6-4.6); Lymphocytes % 10.9 %; Mean Corpuscular HGB Conc 29.3 g/dL (31.6-35.5); Mean Platelet Volume 9.4 fL (9.4-12.4); Monocytes # 0.5 K/mcL (0.0-1.3); Monocytes % 8.3 %; Neutrophils # 4.3 K/mcL (1.6-8.9); Platelet Count 157 K/mcL (140-400); Red Blood Count 2.69 M/mcL (4.19-5.50); Red Cell Distribution Width 17.5 % (11.5-14.5); Segmented Neutrophils % 79.3 %; White Blood Count 5.4 K/mcL (4.3-11.1)
[2020-11-22 12:48] LABS: Mean Corpuscular Volume 109.3 fL (83.0-100.0)
[2020-11-22] MEDS ORDERED: *HR* Midazolam HCl 5 MG/5 ML VIAL IVP ONE (12:56)
[2020-11-22] MEDS ORDERED: *HR* FentaNYL (PF) 100 MCG/2 ML VIAL IVP ONE (13:06)
[2020-11-22] MEDS ORDERED: FentaNYL (PF) 1,000 MCG/100 ML IV.SOLN IVC SCH (14:15)
[2020-11-22] MEDS ORDERED: Hydrocortisone Sodium Succ 100 MG/2 ML VIAL IVP ONE (15:15)
[2020-11-22] MEDS ORDERED: Phenylephrine 10 MG in 0.9 % Sodium Chloride 250 ML IVC SCH (15:15)
[2020-11-22] MEDS: Norepinephrine 4 MG/254 ML IV.SOLN IVC SCH ×2 (15:35→17:25)
[2020-11-22] MEDS ORDERED: Ipratropium/Albuterol Neb 3 ML IH PRN (15:45)
[2020-11-22] MEDS ORDERED: *HR* Heparin 5,000 UNIT/ML VIAL IVP ONE (15:45)
[2020-11-22] MEDS ORDERED: Acetaminophen 325 MG TABLET PO PRN (15:45)
[2020-11-22] MEDS ORDERED: Artificial Tears SOLN 15 ML BOTTLE BOTH EYES PRN (15:45)
[2020-11-22] MEDS ORDERED: Naloxone 0.4 MG/ML INJ IVP PRN (15:45)
[2020-11-22] MEDS ORDERED: Heparin 25,000UNIT/250ML 1/2NS 25,000 UNIT/250 ML IV.SOLN IVC SCH (15:45)
[2020-11-22] MEDS ORDERED: *HR* Heparin 5,000 UNIT/ML VIAL IVP PRN ×2 (15:45)
[2020-11-22] MEDS ORDERED: Artificial Tears SOLN 15 ML BOTTLE BOTH EYES SCH (16:00)
[2020-11-22] MEDS ORDERED: Piperacillin/Tazobactam 3.375 GM in 0.9 % Sodium Chloride Mini Bag 100 ML IVPB SCH (16:00)
[2020-11-22] MEDS ORDERED: Pantoprazole 40 MG VIAL IVP SCH (16:00)
[2020-11-22] MEDS ORDERED: MetroNIDAZOLE 500 MG/100 ML 500 MG/100 ML BAG IVPB SCH (16:00)
[2020-11-22] MEDS ORDERED: Norepinephrine 8 MG/508 ML IV.SOLN IVC SCH (16:15)
[2020-11-22] MEDS ORDERED: Phenylephrine 50 MG in 0.9 % Sodium Chloride 250 ML IVC SCH (16:15)
[2020-11-22] MEDS ORDERED: Norepinephrine 4 MG/254 ML IV.SOLN IVC SCH (16:30)
[2020-11-22] MEDS ORDERED: Norepinephrine 8 MG in 0.9 % Sodium Chloride 250 ML IVC SCH (16:30)
[2020-11-22 16:48] VITALS: TEMP 97.3
[2020-11-22 17:44] LABS: ABG Base Excess 0 mEq/L (-2 to 3); ABG HCO3 29 mEq/L (21-27); ABG Oxygen Saturation 93 % (95-98); ABG PCO2 66 mmHg (35-45); ABG PH 7.24 pH Units (7.32-7.45); ABG PO2 80 mmHg (85-104); ABG TCO2 31 mEq/L (20-26); Blood Gas Modality ASSIST CONTROL; Blood Gas VT 450 cc
[2020-11-22 17:53] VITALS: O2SAT 99
[2020-11-22] MEDS ORDERED: *HR* Succinylcholine 200 MG/10 ML VIAL IVP ONE (18:49)
[2020-11-22 19:14] LABS: Heparin anti-factor XA UFH < 0.04 IU/mL (0.30-0.70); Prothrombin Time 11.8 Seconds (9.4-12.1)
[2020-11-22 19:30] VITALS: BP 135/59; PULSE 63
[2020-11-22 19:38] LABS: Triiodothyronine (T3) Free 1.4 pg/mL (2.50-3.90)
[2020-11-22] MEDS ORDERED: Chlorhexidine Rinse 15 ML MOUTHWASH MM SCH (21:00)
[2020-11-22] MEDS ORDERED: Hydrocortisone Sodium Succ 100 MG/2 ML VIAL IVP SCH (22:00)
== END 2020-11-22 18:50 | disposition short-term general hospital (02) | DRG 871 ==
LOC: EMEROOARM 11:26 → ICNU 11:26
PROVIDERS: ADMIT Pediatrics; ATTEND Pediatrics

== ENCOUNTER 2021-04-01 08:02 | Inpatient (IN) ==
[2021-04-01] MEDS ORDERED: Ondansetron ODT 4 MG TAB.RAPDIS SL PRN (17:24)
[2021-04-01] MEDS ORDERED: Naloxone 0.4 MG/ML INJ IVP PRN (17:24)
[2021-04-01] MEDS: Pantoprazole 40 MG VIAL IVP SCH (18:14)
[2021-04-01 22:43] LABS: Hematocrit 21.2 % (37.5-50.1); Hemoglobin 6.8 g/dL (12.9-16.9)
[2021-04-02] MEDS ORDERED: 0.9 % Sodium Chloride 250 ML ONE (01:45)
[2021-04-02] MEDS: Pantoprazole 40 MG VIAL IVP SCH ×2 (06:05→18:24)
[2021-04-02 06:39] LABS: Hematocrit 23.1 % (37.5-50.1); Hemoglobin 7.2 g/dL (12.9-16.9); Mean Corpuscular HGB Conc 31.2 g/dL (31.6-35.5); Mean Corpuscular Hemoglobin 27.3 pg (28.0-33.3); Mean Corpuscular Volume 87.5 fL (83.0-100.0); Mean Platelet Volume 9.7 fL (9.4-12.4); Platelet Count 177 K/mcL (140-400); Red Blood Count 2.64 M/mcL (4.19-5.50); Red Cell Distribution Width 17.7 % (11.5-14.5); White Blood Count 7.2 K/mcL (4.3-11.1)
[2021-04-02 07:01] LABS: Calcium 9.4 mg/dL (8.6-10.3); Potassium 6.1 mEq/L (3.5-5.1)
[2021-04-02] MEDS ORDERED: Ipratropium/Albuterol Neb 3 ML IH PRN (08:26)
[2021-04-02] MEDS ORDERED: 0.9 % Sodium Chloride 250 ML IVC PRN (10:36)
[2021-04-02] MEDS: Acetaminophen 325 MG TABLET PO PRN ×2 (10:41→20:48)
[2021-04-02] MEDS ORDERED: 0.9 % Sodium Chloride 1,000 ML PRIME SCH (10:45)
[2021-04-02] MEDS ORDERED: *HR* FentaNYL (PF) 100 MCG/2 ML VIAL IVP ONE (15:14)
[2021-04-02] MEDS ORDERED: *HR* Midazolam HCl 5 MG/5 ML VIAL IVP ONE (15:14)
[2021-04-02 17:04] LABS: Hepatitis B Surface Antibody < 3.10 mIU/mL
[2021-04-02 17:14] LABS: Hepatitis B Surface Antigen Nonreactive (Nonreactive)
[2021-04-02] MEDS: Ciprofloxacin/Dex *EAR* Susp 7.5 ML BOTTLE TP SCH (20:48)
[2021-04-02] MEDS ORDERED: *HR* OxyCODONE Immed Rel 5 MG TABLET GTUBE SCH (21:45)
[2021-04-02] MEDS: *HR* OxyCODONE Immed Rel 5 MG TABLET GTUBE SCH (22:45)
[2021-04-03 04:30] LABS: Hematocrit 23.4 % (37.5-50.1); Hemoglobin 7.7 g/dL (12.9-16.9); Mean Corpuscular HGB Conc 32.9 g/dL (31.6-35.5); Mean Corpuscular Hemoglobin 29.2 pg (28.0-33.3); Mean Corpuscular Volume 88.6 fL (83.0-100.0); Mean Platelet Volume 9.5 fL (9.4-12.4); Platelet Count 196 K/mcL (140-400); Red Blood Count 2.64 M/mcL (4.19-5.50); Red Cell Distribution Width 17.9 % (11.5-14.5); White Blood Count 6.9 K/mcL (4.3-11.1)
[2021-04-03 04:46] LABS: Calcium 9.2 mg/dL (8.6-10.3); Potassium 4.8 mEq/L (3.5-5.1)
[2021-04-03] MEDS: Pantoprazole 40 MG VIAL IVP SCH ×2 (05:50→16:48)
[2021-04-03] MEDS: *HR* OxyCODONE Immed Rel 5 MG TABLET GTUBE SCH ×4 (05:50→22:50)
[2021-04-03] MEDS ORDERED: 0.9 % Sodium Chloride 250 ML IVC PRN (07:53)
[2021-04-03] MEDS ORDERED: 0.9 % Sodium Chloride 1,000 ML PRIME SCH (08:00)
[2021-04-03] MEDS: Ciprofloxacin/Dex *EAR* Susp 7.5 ML BOTTLE TP SCH ×2 (09:57→21:15)
[2021-04-03] MEDS ORDERED: polyethylene glycoL 3350 17 GM POWD.PACK GTUBE PRN (15:37)
[2021-04-03] MEDS ORDERED: 3% Sodium Chloride Inhalation 4 ML VIAL.NEB IH PRN (15:37)
[2021-04-03] MEDS: carvediloL 6.25 MG TABLET GTUBE SCH (16:47)
[2021-04-03] MEDS: Miconazole 2% ointment 141 APPL/141 GM TUBE TP SCH (21:15)
[2021-04-03] MEDS: Melatonin 3 MG TABLET GTUBE SCH (21:15)
[2021-04-04] MEDS: Insulin LISPRO 300 UNITS/3 ML VIAL SUBQ SCH ×6 (00:33→19:30)
[2021-04-04] MEDS: Acetaminophen 325 MG TABLET PO PRN (01:23)
[2021-04-04] MEDS: *HR* OxyCODONE Immed Rel 5 MG TABLET GTUBE SCH ×4 (03:59→22:11)
[2021-04-04 05:17] LABS: Hematocrit 20.7 % (37.5-50.1); Hemoglobin 6.5 g/dL (12.9-16.9); Mean Corpuscular HGB Conc 31.4 g/dL (31.6-35.5); Mean Corpuscular Hemoglobin 28.1 pg (28.0-33.3); Mean Corpuscular Volume 89.6 fL (83.0-100.0); Mean Platelet Volume 9.9 fL (9.4-12.4); Platelet Count 176 K/mcL (140-400); Red Blood Count 2.31 M/mcL (4.19-5.50); Red Cell Distribution Width 18.2 % (11.5-14.5); White Blood Count 4.7 K/mcL (4.3-11.1)
[2021-04-04 05:35] LABS: Calcium 8.9 mg/dL (8.6-10.3); Potassium 3.8 mEq/L (3.5-5.1)
[2021-04-04] MEDS: Pantoprazole 40 MG VIAL IVP SCH ×2 (05:52→17:03)
[2021-04-04] MEDS: Miconazole 2% ointment 141 APPL/141 GM TUBE TP SCH ×2 (09:00→19:52)
[2021-04-04] MEDS: Ciprofloxacin/Dex *EAR* Susp 7.5 ML BOTTLE TP SCH ×2 (10:00→19:52)
[2021-04-04] MEDS: Cholecalciferol (D-3) 1,000 UNIT (25MCG) TABLET GTUBE SCH (10:10)
[2021-04-04] MEDS: carvediloL 6.25 MG TABLET GTUBE SCH ×2 (10:10→17:03)
[2021-04-04] MEDS: Renal Vitamin 1 CAP CAPSULE PO SCH (10:12)
[2021-04-04 14:13] LABS: Hematocrit 22.5 % (37.5-50.1); Hemoglobin 7.1 g/dL (12.9-16.9)
[2021-04-04] MEDS: Melatonin 3 MG TABLET GTUBE SCH (19:31)
[2021-04-05] MEDS: Insulin LISPRO 300 UNITS/3 ML VIAL SUBQ SCH ×5 (00:19→16:35)
[2021-04-05] MEDS: Pantoprazole 40 MG VIAL IVP SCH (04:30)
[2021-04-05] MEDS: *HR* OxyCODONE Immed Rel 5 MG TABLET GTUBE SCH ×3 (04:30→16:03)
[2021-04-05] MEDS: Ciprofloxacin/Dex *EAR* Susp 7.5 ML BOTTLE TP SCH (09:12)
[2021-04-05] MEDS: carvediloL 6.25 MG TABLET GTUBE SCH (09:12)
[2021-04-05] MEDS: Cholecalciferol (D-3) 1,000 UNIT (25MCG) TABLET GTUBE SCH (09:12)
[2021-04-05] MEDS: Renal Vitamin 1 CAP CAPSULE PO SCH (09:12)
[2021-04-05 09:23] LABS: Basophils % 0.7 %; Eosinophils # 0.3 K/mcL (0.0-0.6); Eosinophils % 6.7 %; Hematocrit 23.6 % (37.5-50.1); Hemoglobin 7.3 g/dL (12.9-16.9); Immature Granulocytes % 2.4 % (0-4); Lymphocytes # 0.5 K/mcL (0.6-4.6); Lymphocytes % 11.1 %; Mean Corpuscular HGB Conc 30.9 g/dL (31.6-35.5); Mean Corpuscular Hemoglobin 28.1 pg (28.0-33.3); Mean Corpuscular Volume 90.8 fL (83.0-100.0); Mean Platelet Volume 9.6 fL (9.4-12.4); Monocytes # 0.3 K/mcL (0.0-1.3); Monocytes % 5.6 %; Neutrophils # 3.3 K/mcL (1.6-8.9); Platelet Count 188 K/mcL (140-400); Red Cell Distribution Width 17.9 % (11.5-14.5); Segmented Neutrophils % 73.5 %; White Blood Count 4.5 K/mcL (4.3-11.1)
[2021-04-05 09:42] LABS: Calcium 9.4 mg/dL (8.6-10.3); Potassium 4.2 mEq/L (3.5-5.1)
[2021-04-05] MEDS: Miconazole 2% ointment 141 APPL/141 GM TUBE TP SCH (10:22)
[2021-04-05 11:40] VITALS: PULSE 68; TEMP 98.3
[2021-04-05] MEDS ORDERED: GuaiFENesin Liq 200 MG/10 ML UDC PO PRN (12:38)
[2021-04-05 14:32] VITALS: O2SAT 99
[2021-04-05 16:04] VITALS: BP 168/86
== END 2021-04-05 17:25 | DRG 368 ==
LOC: 2NNU → SUATTDRO 15:53
PROVIDERS: ADMIT Family Medicine; ATTEND Family Medicine